=== PATIENT | male | born 1970 | race Caucasian/White ===

== ENCOUNTER 2019-05-06 08:07 | Outpatient (CLI) | payer OTHER, SELFPAY ==
--- NOTE | 2019-05-06 08:26 | ECG_ITS ---
NAME OF STUDY: LEXISCAN SESTAMIBI STRESS TEST INDICATION: Chest Pain; Shortness of Breath, PROCEDURE: At the baseline, the EKG revealed sinus bradycardia with right bundle branch block. Nonspecific T wave changes.. The baseline blood pressure was 122/89 mm Hg with a heart rate of 54 beats/min. Lexiscan was infused over a period of 20 seconds. A total of 0.4 milligrams of Lexiscan was infused. The stress phase was continued for a total of 5 minutes. Heart rate at the end of the stress phase was 74 with a blood pressure 143/89. The EKG at the peak infusion revealed nonspecific T wave changes. Sestamibi was injected 20 seconds after the Lexiscan infusion. Blood pressure at the end of the recovery phase was 132/81 with a heart rate of 60 per minute. CONCLUSION: 1. Nonspecific EKG changes with the LexiScan infusion 2. No LexiScan induced chest pain or cardiac arrhythmia 3. Normal blood pressure and heart rate response 4. Sestamibi/sestamibi perfusion scan pending; see separate report. Electronically Signed On 05-06-2019 19:03:13 AIRPLANE DESIGNER by Juan José Garcia M.D. [id number]
--- NOTE | 2019-05-06 09:29 | NMCV_ITS ---
NM abbi perf SPECT r/s* [id number] Oscar Miguel Age: 48 Gender: M : 1970 Exam Date: 05/06/2019 09:44 Ordering Phys: Juan José Garcia MD ([email or web address]) Technologist: TRUDI Zarco Exam Location: [facility] Indications: SOB STRESS TEST [facility] IMAGE PROTOCOL Rest/Stress 1 Lexiscan Day Radiopharmaceutical Dose (mCi) Administration Site Administered by Rest: Tc-99m 10.7 IV TRUDI Zarco Sestamibi Stress:Tc-99m 31.2 IV TRUDI Zarco Sestamibi Rest: 06-May-2019 60 Discovery 630 Stress: 06-May-2019 60 Discovery 630 0.4mg Lexiscan. Images obtained in supine and prone position. SPECT RESULTS Technical Quality: Excellent Raw Data Analysis: Normal Image Corrections: No attenuation or motion correction applied Summed Stress Score: 9 Summed Rest Score: 8 Summed Difference Score: 1 PERFUSION FINDINGS Moderately decreases uptake were noted in the mid and apical inferior, mid inferolateral, and apical lateral region, with no significant reversibility. Slightly decreases uptake was noted in the mid anterolateral region and LV apex with no significant reversibility. However with the polar plot, there is a circular reversibility in the mid anterolateral region. FUNCTIONAL RESULTS (calculated via Gated SPECT) Stress Image LV EF (%): 55 Stress EDV (mL):97 TID: 1.08 Stress ESV (mL):44 FUNCTIONAL FINDINGS: Segmental wall motion analysis revealed no gross wall motion normalities. IMPRESSIONS 1. Myocardial perfusion imaging revealing areas of fixed defects with a subtle area of reversible defect, suggestive of myocardial scarring in the distribution of the right coronary artery/circumflex artery with a very small area of possible vicki-infarction ischemia. However because of the inconsistency, the reliability of this finding is limited. 2. Normal LV ejection fraction 55%. 3. LV wall motion analysis revealing no gross wall motion normalities. 4. The LV volume, upper limit of normal(end-systolic volume of 44 mL) Dr Juan José Garcia MD FAC (Electronically Signed) Final Date: 06 May 2019 17:38 S
[2019-05-06 09:34] VITALS: BMI 34.7
[2019-05-06] MEDS: regadenoson 0.4 Mg/5 ml Syringe IVP (10:30)
[2019-05-06] MEDS: aminophylline 25 mg/mL SDV 10 mL IVP (10:36)
[2019-05-06 10:48] VITALS: BP 132/82; PULSE 57
== END 2019-05-06 08:08 | disposition home or self-care (01) ==
LOC: CDL 08:12
PROVIDERS: Family Provider Family Medicine; PCP Family Medicine; Visit Provider Internal Medicine Cardiovascular Disease
DX: R07.9 Chest pain, unspecified (principal); R06.02 Shortness of breath
CPT/HCPCS: 78452; 93017; 96374; 96375; A9500; J0280; J2785

== ENCOUNTER → 2022-03-19 11:09 | Outpatient (BNVA) | payer OTHER, SELFPAY | PROVIDERS: Family Provider Family Medicine; PCP Family Medicine; Visit Provider Clinical Nurse Specialist Adult Health | DX: B34.9 Viral infection, unspecified (principal) | CPT/HCPCS: 87400 ==

== ENCOUNTER 2022-07-06 08:52 | Outpatient (CLI) | payer OTHER, SELFPAY ==
[2022-07-06 10:36] LABS: Alanine Aminotransferase 41 U/L (0-41); Albumin Level 4.3 g/dL (3.5-5.2); Alkaline Phosphatase 79 U/L (40-130); Anion Gap 15.4 (5-19); Aspartate Amino Transferase 28 U/L (0-40); Blood Urea Nitrogen 16 mg/dL (6-20); Calcium 8.6 mg/dL (8.5-10.5); Carbon Dioxide 23 mmol/L (22-29); Chloride 106 mmol/L (98-107); Chol HDL Ratio 4.11 mg/dL (1.0-5.00); Cholesterol 111 mg/dL (0-200); Globulin 2.7 g/dL (1.3-4.6); Glomerular Filtration Rate 78.2 mL/min (90-130); Glucose 90 mg/dL (65-115); HDL Cholesterol 27 mg/dL (60-100); LDL Cholesterol Calculated 52 mg/dL (50-129); LDL HDL Ratio 1.93 RATIO (0.00-3.22); Osmolality Calculated 291 mOsm/kg (285-295); Potassium 4.4 mmol/L (3.5-5.1); Sodium 140 mmol/L (136-145); Total Bilirubin 0.3 mg/dL (0.15-1.2); Triglycerides 158 mg/dL (0-150)
== END 2022-07-06 08:53 | disposition home or self-care (01) ==
LOC: LAB 09:02
PROVIDERS: PCP Family Medicine; Visit Provider Internal Medicine Cardiovascular Disease
DX: E78.5 Hyperlipidemia, unspecified (principal); R06.02 Shortness of breath
CPT/HCPCS: 80048; 80061; 80076

== ENCOUNTER 2023-01-17 12:03 | Outpatient (CLI) | payer OTHER, SELFPAY ==
--- NOTE | 2023-01-17 14:00 | USCV_ITS ---
Oscar Miguel Age: 52 Gender: M : 1970 Exam Date: 01/17/2023 12:53 Ordering Phys: Oliver Cedeno MD Technologist: ALY Exam Location: [facility] [place] Indication: Leg pain and swellng HISTORY: Lower extremity swelling. Lower extremity pain. PROCEDURES: Venous duplex imaging was performed in only the LEFT lower extremity. The following venous structures were evaluated: common femoral vein, profunda vein, proximal portion of the greater saphenous vein, superficial femoral vein, and the popliteal vein. In addition, the posterior tibial and peroneal trunk were evaluated. Serial compression, augmentation maneuvers, and spectral Doppler flow evaluation were performed. FINDINGS: Normal 2-D Doppler and augmentation and compressibility throughout the lower extremity venous structures. Additional imaging through the proximal calf veins also reveals no thrombus. Limited evaluation of the greater saphenous vein is patent with no thrombus. CONCLUSIONS No DVT left lower extremity. Dr. Shabnam Gregory DO (Electronically Signed) Final Date: 17 January 2023 16:16 Amended: 21 January 2023 13:07 C
== END 2023-01-17 12:04 | disposition home or self-care (01) ==
PROVIDERS: PCP Family Medicine; Visit Provider Family Medicine
DX: M79.89 Other specified soft tissue disorders (principal); M79.605 Pain in left leg; Z51.81 Encounter for therapeutic drug level monitoring; R73.09 Other abnormal glucose; R74.01 Elevation of levels of liver transaminase levels
CPT/HCPCS: 80053; 83036; 83735; 84443; 85025; 85379; 93971

== ENCOUNTER 2023-01-25 06:54 | Outpatient (CLI) | payer OTHER, SELFPAY ==
--- NOTE | 2023-01-25 07:15 | US_ITS ---
WS: [id number] RIGHT UPPER QUADRANT ULTRASOUND HISTORY: Chronic elevation of transaminases. COMPARISON: None available. Liver: 16.0 cm in length. Normal size liver. Mild hepatic steatosis. No mass or bile duct identified. Portal Vein: Normal hepatopetal flow with monophasic waveform. Gallbladder: Normally distended gallbladder with no stones or wall thickening. CBD: 0.3 cm Pancreas: Portions of the head and tail are obscured. The body is negative. Right kidney: 9.3 cm in length. Normal size and echogenicity. No hydronephrosis or mass. Aorta and IVC: Unremarkable abdominal aorta and IVC. No ascites. IMPRESSION: 1. Normal gallbladder. 2. Mild hepatic steatosis. 3. Nonvisualization of the pancreas.
== END 2023-01-25 06:55 | disposition home or self-care (01) ==
PROVIDERS: PCP Family Medicine; Visit Provider Family Medicine
DX: R74.01 Elevation of levels of liver transaminase levels (principal); K76.0 Fatty (change of) liver, not elsewhere classified
CPT/HCPCS: 76705; 86803; 87340

== ENCOUNTER 2023-05-24 21:58 | Emergency (ER) | payer OTHER, SELFPAY ==
[2023-05-24 22:03] VITALS: BP 161/101; PULSE 65; RESP 18; O2SAT 98
--- NOTE | 2023-05-24 22:18 | XRR_ITS ---
PROCEDURE INFORMATION: Exam: XR Chest Exam date and time: 05/24/2023 10:38 PM Age: 53 years old Clinical indication: Cough TECHNIQUE: Imaging protocol: Radiologic exam of the chest. Views: 1 view. COMPARISON: CR XR chest 1V [id number] 09/11/2018 8:00 AM FINDINGS: Lungs: Strandy and hazy opacities are seen in the left lower hemithorax, findings left basilar atelectasis versus pneumonia. Pleural spaces: Unremarkable. No pleural effusion. No pneumothorax. Heart/Mediastinum: Unremarkable. No cardiomegaly. Bones/joints: Unremarkable. XR/XR chest 1V portable [id number] IMPRESSION: Strandy and hazy opacities left lower hemithorax compatible with a left lower lobe atelectasis and/or pneumonia.
[2023-05-24] MEDS: methylPREDNISolone sod succ 125 mg/2 mL INJ IVP (22:23)
[2023-05-24] MEDS: metoclopramide 5 mg/mL SDV 2 mL 10 MG IVP (22:24)
[2023-05-24 22:25] VITALS: BP 161/101; PULSE 58; RESP 16; O2SAT 96
--- NOTE | 2023-05-24 22:33 | ED_ITS ---
HPI - Allergic Reaction General: Chief complaint: Allergic Reaction Stated complaint: allergic rxn Time Seen by Provider: 05/24/23 22:01 History of Present Illness: HPI narrative: 53-year-old male presents emergency depa rtment with complaints of a swollen lo wer lip. He states he feels like he is having some slight trouble breathing and feels like he has a scratchy throat. He states that at approximately 2100 this evening he noted that his lip was swollen. He states he was just in [facility] and had eaten some [place] food and then flew home and became concerned that he might be having an allergic reaction. He denies rash or urticaria. He states that he does have an extensive cardiac history and has taken lisinopril in the past but stopped it many years ago. He states he had to stop the lisinopril because he was having psychiatric associated side effects at that time. Review of Systems General: Reports: 10 or more systems reviewed and unremarkable except in HPI and below ENMT: Reports: throat pain and swelling of lips/tongue PFSH ED PFSH: Medical History Abnormal nuclear stress test Atherosclerotic heart disease [place] coronary artery w/angina pectoris Chest pain Dyslipidemia Essential hypertension Family history of premature coronary artery disease Shortness of breath Surgical History History of hernia repair History of PTCA Family History Brother CAD (coronary artery disease) Stroke Father CAD (coronary artery disease) Diabetes Hypertension Stroke Denies family history of Clotting disorder Dementia Hyperlipidemia Chronic kidney disease (CKD) Suicide Anesthesia complication Bleeding disorder Lung disease Cancer Social History Smoking and tobacco/nicotine status: never used tobacco/nicotine Alcohol intake: never Physical Exam Narrative: EXAM NARRATIVE: Constitutional: the patient appears well nourished and of normal development. Vital signs as documented. No acute distress at present. Alert and oriented-to person, place, time and situation. Head, eyes, ears, nose, mouth, throat: Normocephalic, atraumatic. Pupils-equal, round, reactive to light. No scleral icterus. Normal-appearing external ears. Normal appearing nasal turbinates, no drainage. No obvious oral lesions, posterior oropharynx without erythema or exudates. Patient does have a mildly swollen lower lip and there is slight edema to the uvula. Neck: Supple, trachea is midline, no lymphadenopathy, no jugular venous distension, thyromegaly, or carotid bruits. Carotid upstrokes are brisk bilaterally. Lungs: clear to auscultation to all lung loya. Symmetrical rise and fall of chest, no obvious signs of increased work of breathing at present. Cardiac: Regular rate and rhythm, positive S1, S2. No murmurs, rubs or gallops that I can appreciate Abdomen: Soft, non-tender to palpation, normal active bowel sounds to all quadrants. No palpable masses, no organomegaly and abdominal bruits. Extremities: 2+ pulses in the upper extremities that are equal bilaterally, 2+ pulses in the lower extremities that are equal bilaterally. Non-edematous. Moves all extremities well, sensation to all extremities are noted. Skin: Warm, dry, intact. Course Reevaluation(s): Reevaluation #1: Reevaluation of the patient, he states that he feels much better his lower lip is much less swollen his uvula appears to have returned to normal. He is not having any difficulty swallowing or any difficulty with respirations. I will discharge the patient home with written prescriptions. Given the radiographic chest x-ray findings I will provide him written prescription of antibiotics at the time of discharge. Time: 23:52 Vital Signs: Vital signs: Vital Signs Pulse Rate 58 L 05/24/23 22:25 Respiratory Rate 16 05/24/23 22:25 Blood Pressure 161/101 05/24/23 22:25 Pulse Oximetry 96 05/24/23 22:25 Oxygen Delivery Me thod Room Air 05/24/23 22:25 MDM - Allergic Reaction Medical Decision Making Physical exam completed and documented, I will provide IV access as well as provide the patient with Solu-Medrol and Reglan. I will also obtain a chest x- ray. He is requested that we not not receive Benadryl unless absolutely necessary as he has no one to drive him home. I suspect most likely this acute angioedema is secondary to previous history of lisinopril use. Lab Data Radiology Impressions Chest X-Ray 05/24/23 22:18 IMPRESSION: Strandy and hazy opacities left lower hemithorax compatible with a left lower lobe atelectasis and/or pneumonia. All radiology interpretation(s) finalized by discharge Discharge Plan Discharge Patient Disposition: Home Clinical Impression: Idiopathic angioedema, Cough, PNA (pneumonia) Condition: Stable Prescriptions: New hydroxyzine HCl 25 mg tablet 25 mg PO Q8H Qty: 14 0RF prednisone 20 mg tablet 40 mg PO DAILY 5 Days Qty: 10 0RF azithromycin [Zithromax TRI-DELANO] 500 mg tablet See Rx Instructions .ROUTE .COMPLEX Qty: 3 0RF Rx Instructions: For 250 mg dose pack: take 500 mg today (day 1), then 250 mg for 4 days (days 2-5) No Action fexofenadine [Nieves Allergy] 180 mg tablet 180 mg PO DAILY aspirin 81 mg tablet,delayed release (DR/EC) 81 mg PO DAILY Qty: 100 3RF furosemide 20 mg tablet See Rx Instructions .ROUTE .COMPLEX Qty: 90 3RF Dose Instruction: TAKE ONE TABLET BY MOUTH DAILY FOR 1 WEEK, THEN NEEDED FOR SWELLING Rx Instructions: TAKE ONE TABLET BY MOUTH DAILY FOR 1 WEEK, THEN NEEDED FOR SWELLING nitroglycerin [Nitrostat] 0.4 mg tablet, sublingual 0.4 mg SUBLINGUAL Q5M PRN (Reason: chest pain) Qty: 25 1RF potassium chloride 10 mEq tablet extended release See Rx Instructions .ROUTE .COMPLEX Qty: 90 3RF Dose Instruction: TAKE ONE TABLET BY MOUTH DAILY WHEN TAKING FUROSEMIDE Rx Instructions: TAKE ONE TABLET BY MOUTH DAILY WHEN TAKING FUROSEMIDE atorvastatin 40 mg tablet See Rx Instructions .ROUTE .COMPLEX Qty: 7 0RF Dose Instruction: TAKE 1 TABLET DAILY Rx Instructions: TAKE 1 TABLET DAILY clopidogrel 75 mg tablet 75 mg PO DAILY Qty: 7 0RF Rx Instructions: Patient needs to choose 1 pharmacy isosorbide mononitrate 60 mg tablet extended release 24 hr See Rx Instructions .ROUTE .COMPLEX Qty: 7 0RF Dose Instruction: TAKE 1 TABLET BY MOUTH EVERY DAY Rx Instructions: TAKE 1 TABLET BY MOUTH EVERY DAY metoprolol tartrate 50 mg tablet 50 mg PO BID Qty: 14 0RF valsartan 40 mg tablet 40 mg PO DAILY Qty: 7 0RF Discharge Orders: Discharge ED (Routine); Ordered 05/24/23 Ordered By: Paulino Cerda Referrals: Oliver Cedeno MD [Primary Care Provider] - Discharge Diet: Advance as tolerated Discharge Activity: Resume usual activity Patient Instructions: Opioid Safety, Pain Management Activity Restrictions/Additional Instructions: Activity Restrictions/Additional Instructions: Thank you for choosing [facility] for your healthcare needs today. Please realize that you were seen in the Emergency Department and that we are providing you with an emergency medical screening exam and this may not be a complete and all inclusive of all the testing and or medical work-up that you may need to determine your ailment or severity of your illness. It is very important that you follow-up as instructed with your Primary care provider or Specialist for additional evaluation and to discuss your medical treatment plan. You may return to the Emergency Department should you have concerns or if your condition changes or worsens in any way. Coding Level of Care Code ED Auto Damage Insurance Appraiser for João Huff
[2023-05-24 23:59] VITALS: BP 113/73; PULSE 62; RESP 16; O2SAT 94
== END 2023-05-25 | disposition home or self-care (01) ==
PROVIDERS: Emergency Provider Internal Medicine; PCP Family Medicine
DX: T78.3XXA Angioneurotic edema, initial encounter (principal); J18.9 Pneumonia, unspecified organism; Z79.02 Long term (current) use of antithrombotics/antiplatelets; Z79.82 Long term (current) use of aspirin; I25.10 Atherosclerotic heart disease of native coronary artery without angina pectoris; E78.5 Hyperlipidemia, unspecified; I10 Essential (primary) hypertension
CPT/HCPCS: 71045; 96374; 96375; 99284; J2765; J2930

== ENCOUNTER 2023-06-21 13:51 | Outpatient (CLI) | payer OTHER, SELFPAY ==
--- NOTE | 2023-06-21 14:30 | MR_ITS ---
WS: [id number] MRI HEAD WITH CONTRAST TECHNIQUE: Sagittal T1, T2 axial, T2 axial FLAIR, axial susceptibility weighted imaging, axial diffus ion weighted images, and coronal T2 images were obtained. Pre and post-T1 axial and post T1 coronal i mages. ADC and FSPGR images. CLINICAL INFORMATION: [place] Headaches COMPARISON: None. FINDINGS: No evidence of restricted diffusion to suggest acute ischemia. Ventricular system and basal cisterns are patent. Mild small vessel changes. Mild parenchymal volume loss. Small vessel changes in the dannie . Normal posterior fossa. Normal vascular flow voids at the skull base. No extra-axial fluid collecti ons. No evidence of mass or mass effect. Paranasal sinuses are well aerated. Normal posterior nasopha rynx. Mastoid air cells are well aerated. Normal optic chiasm and pituitary infundibulum. Temporal lobes and hippocampal formations are normal in appearance. Normal cavernous sinuses and Meckel's cave. Small punctate focus of hemosiderin in the RIGHT anterior temporal lobe measuring 4 mm. No abnormal gadolinium enhancement. Normal visualized dural venous sinuses. IMPRESSION: 1. No evidence of restricted diffusion to suggest acute ischemia. 2. Mild small vessel changes with mild parenchymal volume loss. Small vessel changes in the dannie. 3. 4 mm small focus of hemosiderin in the RIGHT anterolateral temporal lobe. No other foci of hemosi maddie. 4. Normal optic chiasm and pituitary infundibulum. 5. No abnormal gadolinium enhancement. 6. No other suspicious findings.
[2023-06-21] MEDS: gadobenate dimeglumine 20 mL vial IV (14:32)
== END 2023-06-21 13:52 | disposition home or self-care (01) ==
LOC: RAD 13:52
PROVIDERS: PCP Family Medicine; Visit Provider Family Medicine
DX: G44.53 Primary thunderclap headache (principal)
CPT/HCPCS: 70553; 80053; 83036; 84439; 84443; 85025; A9577

== ENCOUNTER 2023-07-04 14:16 | Outpatient (CLI) | payer OTHER, SELFPAY ==
--- NOTE | 2023-07-04 14:30 | MR_ITS ---
WS: [id number] MRA ANGIOGRAPHY [place] OF [place] HISTORY: [place] headaches - [place] COMPARISON: None available. TECHNIQUE: 3-D MR angiography is performed of the [place]. All images are reviewed including source images. Distal vertebral and basilar arteries are intact with no significant stenosis or plaque. Mildly domin ant LEFT vertebral artery. Posterior cerebral arteries are normal course and caliber. Posterior commu nicating arteries are both patent. Intracranial portion of the internal carotid arteries are normal course and caliber. No significant a therosclerosis, stenosis or aneurysm identified. Middle and anterior cerebral arteries are both paten t with no significant disease. Anterior communicating artery is also normal. LEFT A1 segment is sligh tly smaller than the RIGHT. IMPRESSION: Normal MRA [place]. No cerebral artery aneurysm or occlusion.
--- NOTE | 2023-07-04 14:30 | MR_ITS ---
WS: [id number] MRA CAROTID ARTERIES HISTORY: [place] headaches - MRA with contrast of large vessels COMPARISON: None available. TECHNIQUE: MRA is performed with intravenous gadolinium. MIP and source images are reviewed. Right: Cervical, and internal and external carotid arteries are patent. No aneurysms or stenosis. No significant amount of plaque. Left: Cervical, internal and external carotid arteries are patent. No plaque or stenosis. There is a small segment of the proximal cervical carotid artery that is not visualized but I believe this is ar tifact from the patient's shoulders. Subclavian Arteries: Normal. Vertebral Arteries: Mildly dominant LEFT vertebral artery. Small and intermittently visualized RIGHT vertebral artery but better seen on the source images in its entirety. No significant stenosis or ath erosclerotic plaque. IMPRESSION: 1. No significant carotid artery stenosis. 2. Small caliber but patent RIGHT vertebral artery.
[2023-07-04] MEDS: gadobenate dimeglumine 20 mL vial IV (15:38)
== END 2023-07-04 14:17 | disposition home or self-care (01) ==
LOC: RAD 14:17
PROVIDERS: PCP Family Medicine; Visit Provider Family Medicine
DX: G44.53 Primary thunderclap headache (principal)
CPT/HCPCS: 70544; 70548; A9577

== ENCOUNTER → 2023-08-08 15:27 | Outpatient (BNVA) | payer OTHER, SELFPAY | PROVIDERS: PCP Family Medicine; Visit Provider Internal Medicine Cardiovascular Disease | DX: R07.9 Chest pain, unspecified (principal); R06.02 Shortness of breath; E78.5 Hyperlipidemia, unspecified | CPT/HCPCS: 93005 ==

== ENCOUNTER 2023-08-22 07:01 | Outpatient (CLI) | payer OTHER, SELFPAY ==
[2023-08-22 07:38] LABS: Chol HDL Ratio 3.07 mg/dL (1.0-5.00); Cholesterol 92 mg/dL (0-200); HDL Cholesterol 30 mg/dL (60-100); LDL Cholesterol Calculated 33 mg/dL (50-129); Triglycerides 145 mg/dL (0-150); VLDL Cholestrol Calculation 29 mg/dL (0-30)
== END 2023-08-22 07:02 | disposition home or self-care (01) ==
LOC: LAB 07:03
PROVIDERS: PCP Family Medicine; Visit Provider Internal Medicine Cardiovascular Disease
DX: E78.5 Hyperlipidemia, unspecified (principal)
CPT/HCPCS: 36415; 80061

== ENCOUNTER 2023-08-23 07:52 | Outpatient (CLI) | payer OTHER, SELFPAY ==
[2023-08-23 08:36] VITALS: BMI 37.9
--- NOTE | 2023-08-23 08:44 | NMCV_ITS ---
NM abbi perf SPECT r/s* [id number] Oscar Miguel Age: 53 Gender: M : 1970 Exam Date: 08/23/2023 08:56 Ordering Phys: Juan José Garcia MD ([email or web address]) Technologist: TRUDI Andres Exam Location: [facility] Indications: CORONARY ANGIOPLASTY STATUS STRESS TEST Please see separate stress test report in [facility] for full findings IMAGE PROTOCOL Rest/Stress 1 Lexiscan Day Radiopharmaceutical Dose (mCi) Administration Site Administered by Rest: Tc-99m 10.5 IV TRUDI Zarco Sestamibi Stress:Tc-99m 32.5 IV TRUDI Zarco Sestamibi Rest: 23-Aug-2023 60 Discovery 630 Stress: 23-Aug-2023 30 Discovery 630 0.4mg Lexiscan. Images obtained in supine and prone position. SPECT RESULTS Technical Quality: Excellent Raw Data Analysis: Normal Image Corrections: No attenuation or motion correction applied Summed Stress Score: 8 Summed Rest Score: 7 Summed Difference Score: 2 PERFUSION FINDINGS Moderate area of minimal to moderately decreased tracer uptake involving the basal and mid inferolateral, mid anterolateral, mid inferior and apical lateral segments with subtle areas of reversibility. FUNCTIONAL RESULTS (calculated via Gated SPECT) Stress Image LV EF (%): 62 Stress EDV (mL):112 TID: 1.03 Stress ESV (mL):43 FUNCTIONAL FINDINGS: Segmental wall motion analysis revealing no gross wall motion abnormalities IMPRESSIONS 1. Myocardial perfusion imaging revealing moderate area of minimal to moderately decreased tracer uptake involving the inferolateral, anterolateral, inferior and apical lateral regions with a subtle areas of reversibility suggesting myocardial scarring in the distribution of the left circumflex artery and the right coronary artery with the very small areas of possible preinfarction ischemia 2. Normal LV ejection fraction of 62%. 3. LV wall motion analysis revealing no gross wall motion abnormalities. 4. Normal LV volume No similar previous studies are available for comparison Dr Juan José Garcia MD FAC (Electronically Signed) Final Date: 24 Aug 2023 01:19 S
--- NOTE | 2023-08-23 08:44 | ECG_ITS ---
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 Interpretive Statements NAME OF STUDY: LEXISCAN SESTAMIBI STRESS TEST INDICATION: Chest Pain PROCEDURE: At the baseline, the EKG revealed sinus bradycardia with features of incomplete right bundle branch block pattern. The baseline heart was 56 bpm with a blood pressue of 139/95 mm of Hg Lexiscan was infused over a period of 20 seconds. A total of 0.4 milligrams of Lexiscan was infused. The stress phase was continued for a total of 5 minutes. Heart rate at the end of the stress phase was 83 bpm with a blood pressure 149/86 mm of Hg. The EKG at the peak infusion revealed no significant changes. Sestamibi was injected 20 seconds after the Lexiscan infusion. Heart rate at the end of the recovery phase was 78 bpm with a blood pressure of 143/83 mm of Hg. CONCLUSION: 1. No significant EKG changes with the LexiScan infusion 2. No LexiScan induced chest pain or cardiac arrhythmia 3. Normal blood pressure and heart rate response 4. Sestamibi/sestamibi perfusion scan pending; see separate report. Electronically Signed On 08-24-2023 13:38:01 CDT by Juan José Garcia M.D. [id number]
[2023-08-23] MEDS: regadenoson 0.4 Mg/5 ml Syringe 0.400000000000000022 MG IVP (09:37)
[2023-08-23 09:55] VITALS: BP 143/83; PULSE 72
== END 2023-08-23 07:53 | disposition home or self-care (01) ==
PROVIDERS: PCP Family Medicine; Visit Provider Internal Medicine Cardiovascular Disease
DX: Z98.61 Coronary angioplasty status (principal); R00.1 Bradycardia, unspecified; R07.9 Chest pain, unspecified
CPT/HCPCS: 36415; 78452; 93017; 96374; A9500; J2785

== ENCOUNTER 2024-02-21 08:13 | Outpatient (CLI) | payer OTHER, SELFPAY ==
[2024-02-21 09:04] LABS: Chol HDL Ratio 3.32 mg/dL (1.0-5.00); Cholesterol 93 mg/dL (0-200); HDL Cholesterol 28 mg/dL (60-100); LDL Cholesterol Calculated 39 mg/dL (50-129); LDL HDL Ratio 1.39 RATIO (0.00-3.22); Triglycerides 128 mg/dL (0-150)
== END 2024-02-21 08:14 | disposition home or self-care (01) ==
LOC: LAB 08:14
PROVIDERS: PCP Family Medicine; Visit Provider Internal Medicine Cardiovascular Disease
DX: E78.5 Hyperlipidemia, unspecified (principal)
CPT/HCPCS: 36415; 80061

== ENCOUNTER → 2024-09-17 07:18 | Outpatient (BNVA) | payer OTHER, SELFPAY | PROVIDERS: PCP Family Medicine; Visit Provider Family Medicine | DX: Z00.01 Encounter for general adult medical examination with abnormal findings (principal); Z51.81 Encounter for therapeutic drug level monitoring; Z13.6 Encounter for screening for cardiovascular disorders; R39.11 Hesitancy of micturition; R73.09 Other abnormal glucose | CPT/HCPCS: 80053; 80061; 83036; 84153; 85025 ==

== ENCOUNTER 2024-09-23 07:13 | Outpatient (CLI) | payer OTHER, SELFPAY ==
--- NOTE | 2024-09-23 07:15 | US_ITS ---
WS: [id number] RIGHT UPPER QUADRANT ULTRASOUND HISTORY: Right upper quadrant US - Right flank/RUQ abd pain COMPARISON: 01/25/2023 Liver: 16.5 cm in length. Normal size liver. Mild coarse echotexture. The entire liver is not well visualized. Deep portion of the liver is obscured. Variable echogenicity within the liver due to areas of hepatic steatosis with fatty sparing. Portal Vein: Limited. Gallbladder: Normally distended gallbladder with no stones or wall thickening. CBD: 0.4 cm Pancreas: Limited. Right kidney: 9.8 cm in length. Normal size and echogenicity. No hydronephrosis or mass. Aorta and IVC: Limited. No ascites. US/US abdomen limited [id number] IMPRESSION: 1. Technically limited RIGHT upper quadrant ultrasound secondary to body habit us. 2. Normal size liver with hepatic steatosis. The liver is not imaged in its en tirety. 3. Negative gallbladder.
== END 2024-09-23 07:14 | disposition home or self-care (01) ==
PROVIDERS: PCP Family Medicine; Visit Provider Family Medicine
DX: R10.11 Right upper quadrant pain (principal); K76.0 Fatty (change of) liver, not elsewhere classified; R93.2 Abnormal findings on diagnostic imaging of liver and biliary tract
CPT/HCPCS: 76705

== ENCOUNTER → 2024-10-13 10:38 | Outpatient (BNVA) | payer OTHER, SELFPAY | PROVIDERS: PCP Family Medicine; Visit Provider Internal Medicine Cardiovascular Disease | DX: R07.9 Chest pain, unspecified (principal); R94.31 Abnormal electrocardiogram [ECG] [EKG] | CPT/HCPCS: 93005 ==

== ENCOUNTER → 2025-02-12 10:32 | Outpatient (BNVA) | payer OTHER, SELFPAY | PROVIDERS: PCP Family Medicine; Visit Provider Family Medicine | DX: R73.03 Prediabetes (principal); Z51.81 Encounter for therapeutic drug level monitoring | CPT/HCPCS: 80053; 83036; 85025 ==